=== PATIENT | male | born 1995 | race Native Hawaiian/Other Pacific Islander ===

== ENCOUNTER 2023-10-16 18:35 | Emergency (ER) | payer SELFPAY ==
--- NOTE | 2023-10-16 18:40 | ED_ITS ---
HPI - Allergic Reaction General: Chief complaint: Allergic Reaction Stated complaint: ALLERGIC REACTION Time Seen by Provider: 10/16/23 18:37 Source: patient Mode of arrival: ambulatory Limitations: no limitations History of Present Illness: HPI narrative: 31-year-old male brought in by EMS for a llergic reaction he had eaten shrimp and went to urgent care because he was having shortness of breath wheezing and full body rash she is given epinephrine there along with Decadron he states his breathing is improved he still does have rash to trunk and arms he had no known allergies that he knew of. Had no vomiting no diarrhea his blood pressure is normal Associated symptoms: Deny abdominal pain, nausea or vomiting Review of Systems Const: Denies: fever(s), chills, body aches or change in appetite ENMT: Denies: throat pain or dental pain Card: Denies: chest pain Resp: Reports: dyspnea GI: Denies: abdominal pain, nausea, vomiting or diarrhea Musc: Denies: neck pain or back pain Skin/Breast: Denies: rash Neuro: Denies: headache(s) All/Imm: Reports: urticaria Physical Exam Const: COMMON NORMALS: patient oriented x3 and healthy appearing HENMT: COMMON NORMALS: normocephalic and atraumatic HEAD & SCALP: normocephalic and atraumatic OTHER: no tongue swelling Eye: COMMON NORMALS: EOMs intact bilaterally Neck/C-Spine: COMMON NORMALS: full ROM and supple Chest: COMMONS NORMALS: normal inspection of the chest and normal palpation of entire chest wall Resp: COMMON NORMALS: normal respiratory effort, No retractions, No use of accessory muscles and clear to auscultation bilaterally AUSCULTATION: clear to auscultation bilaterally Cardio: COMMON NORMALS: regular rate, regular rhythm and No murmurs present (Cardio) RATE: regular rate RHYTHM: regular rhythm GI: COMMON NORMALS: Normal to inspection, nondistended, normoactive bowel sounds present, Soft to palpation, non-tender and no masses PALPATION: Yes Soft to palpation Extremity: COMMON NORMALS: normal to inspection and full ROM Neuro: COMMON NORMALS: patient oriented x3, moves all extremities and no focal motor deficits Psych: COMMON NORMALS: mental status grossly normal, Normal thought process present and cooperative THOUGHT PROCESS: Normal thought process present Skin: COMMON NORMALS: no wounds NARRATIVE SKIN EXAM: Hive-like rash to trunk and arms Course Vital Signs: Vital signs: Vital Signs Temperature 97.6 F 10/16/23 19:02 Pulse Rate 94 10/16/23 19:02 Respiratory Rate 16 10/16/23 19:02 Blood Pressure 145/99 10/16/23 19:02 Pulse Oximetry 100 10/16/23 19:02 Oxygen Delivery Me thod Room Air 10/16/23 19:02 MDM - Allergic Reaction Medical Decision Making Patient presents with allergic reaction is much improved here his rash is resolved he has no wheezing here he is stable for discharge we will prescribe Ep iPen he is follow-up with PCP return if worsening Medical Records I reviewed the patient's medical records. No radiology studies performed this visit Discharge Plan Discharge Patient Disposition: Home Clinical Impression: Allergic reaction Condition: Stable Prescriptions: New epinephrine [EpiPen 2-Hunter] 0.3 mg/0.3 mL auto-injector 0.3 mg IM Q20M PRN (Reason: anaphylaxis) Qty: 2 0RF Rx Instructions: for 3 doses Discharge Orders: Discharge ED (Routine); Ordered 10/16/23 Ordered By: Boris Sandoval Discharge Diet: Advance as tolerated Discharge Activity: Resume usual activity Patient Instructions: General Allergic Reaction (ED) Coding Level of Care Code ED Child Welfare Counselor for Jose Villar
[2023-10-16] MEDS: famotidine 20 mg/2 mL INJ 40 MG IVP (18:49)
[2023-10-16] MEDS: diphenhydrAMINE 50 mg/mL SDV 1mL IVP (18:50)
[2023-10-16] MEDS: EPINEPHrine 1 mg/mL INJ 0.3 MG IM (18:51)
[2023-10-16 19:02] VITALS: BP 145/99; PULSE 94; RESP 16; TEMP 36.4; O2SAT 100; BMI 27.1
[2023-10-16 19:55] VITALS: BP 138/98; PULSE 97; RESP 23; O2SAT 98
[2023-10-16 20:06] VITALS: PULSE 97; RESP 20; O2SAT 98
== END 2023-10-16 20:01 | disposition home or self-care (01) ==
PROVIDERS: Emergency Provider Emergency Medicine
DX: T78.1XXA Other adverse food reactions, not elsewhere classified, initial encounter (principal); R21 Rash and other nonspecific skin eruption; X58.XXXA Exposure to other specified factors, initial encounter
CPT/HCPCS: 96372; 96374; 96375; 99284; J0171; J1200; J3490